=== PATIENT | female | born 1960 | race Caucasian/White ===

== ENCOUNTER → 2020-01-01 12:57 | Outpatient (BNVA) | payer MEDICAID, SELFPAY | PROVIDERS: Family Provider Family Medicine; Visit Provider Family Medicine | DX: M23.301 Other meniscus derangements, unspecified lateral meniscus, left knee (principal); M19.90 Unspecified osteoarthritis, unspecified site; E11.9 Type 2 diabetes mellitus without complications; Z01.89 Encounter for other specified special examinations; M23.201 Derangement of unspecified lateral meniscus due to old tear or injury, left knee; M51.9 Unspecified thoracic, thoracolumbar and lumbosacral intervertebral disc disorder; F41.9 Anxiety disorder, unspecified; J41.0 Simple chronic bronchitis | CPT/HCPCS: 80053; 83036; 85025 ==

== ENCOUNTER → 2020-01-22 11:11 | Outpatient (BNVA) | payer MEDICAID, SELFPAY | PROVIDERS: Family Provider Family Medicine; Referring Provider Family Medicine; Visit Provider Orthopaedic Surgery | DX: M25.562 Pain in left knee (principal); M17.11 Unilateral primary osteoarthritis, right knee | CPT/HCPCS: 73560; 73565 ==

== ENCOUNTER → 2020-07-01 15:02 | Outpatient (BNVA) | payer MEDICAID, SELFPAY | PROVIDERS: Family Provider Family Medicine; Visit Provider Family Medicine | DX: E11.9 Type 2 diabetes mellitus without complications (principal); R27.0 Ataxia, unspecified; Z01.89 Encounter for other specified special examinations; F41.9 Anxiety disorder, unspecified | CPT/HCPCS: 36416; 82962; 83036 ==

== ENCOUNTER → 2020-11-03 12:31 | Outpatient (BNVA) | payer MEDICAID, SELFPAY | PROVIDERS: Family Provider Family Medicine; Visit Provider Family Medicine | DX: E11.9 Type 2 diabetes mellitus without complications (principal); J41.0 Simple chronic bronchitis; R27.0 Ataxia, unspecified; M51.9 Unspecified thoracic, thoracolumbar and lumbosacral intervertebral disc disorder; F41.9 Anxiety disorder, unspecified; E28.39 Other primary ovarian failure | CPT/HCPCS: 80048; 83036 ==

== ENCOUNTER → 2021-01-27 09:40 | Outpatient (BNVA) | payer MEDICAID, SELFPAY | PROVIDERS: Family Provider Family Medicine; PCP Family Medicine; Referring Provider Family Medicine; Visit Provider Specialist | DX: R20.0 Anesthesia of skin (principal); R20.2 Paresthesia of skin; M51.9 Unspecified thoracic, thoracolumbar and lumbosacral intervertebral disc disorder; Q99.2 Fragile X chromosome; F17.210 Nicotine dependence, cigarettes, uncomplicated | CPT/HCPCS: 99205 ==

== ENCOUNTER 2021-01-27 11:37 | Outpatient (CLI) | payer MEDICAID, SELFPAY ==
[2021-01-27 13:14] LABS: Vitamin B12 542 pg/mL (232-1245)
== END 2021-01-27 11:38 | disposition home or self-care (01) ==
LOC: LAB 11:41
PROVIDERS: PCP Family Medicine; Visit Provider Specialist
DX: R20.0 Anesthesia of skin (principal); R20.2 Paresthesia of skin
CPT/HCPCS: 36415; 82607

== ENCOUNTER 2021-02-17 11:16 | Outpatient (CLI) | payer MEDICAID, SELFPAY ==
--- NOTE | 2021-02-17 11:45 | MR_ITS ---
WS: [id number] MRI LUMBAR SPINE NONCONTRAST HISTORY: M51.9 - Unspecified thoracic, thoracolumbar and lumbosacral intervertebral disc disorder COMPARISON: 05/17/2019 TECHNIQUE: Sagittal and axial multisequence imaging is submitted. Disc osteophyte encroachment upon the ventral cervical cord at C5-6 and C6-7. Posterior lumbar alignment is normal. Mild wedging and Schmorl's nodes along the superior endplates o f T11 and T12. T11 Schmorl's node is new. Moderate disc space narrowing at L5-S1. Otherwise mild desiccation throughout the lumbar spine. Conus terminates normally at L2. L1-L2: Normal. L2-L3: Mild facet joint arthritis. No stenosis. There is a small 6 mm facet cysts on the RIGHT. L3-L4: Mild annular disc bulge with facet joint arthritis. No stenosis. L4-L5: Mild annular disc bulging and mild ligamentum flavum arthritis. Very mild narrowing of the lat eral recesses. No significant foraminal stenosis. L5-S1: Mild annular disc bulging and mild osteophytic ridging. Very mild bilateral foraminal and suba rticular recess stenosis. Similar to the prior studies. Atrophy LEFT kidney with cortical thinning and scarring. MR/MR lumbar spine wo con* [id number] IMPRESSION: 1. No significant central or foraminal stenosis. 2. Mild bilateral foraminal subarticular recess stenosis at L5-S1 similar to t he prior study. 3. Degenerative disc disease is moderate at L5-S1. 4. Schmorl's nodes defects superior endplates of T11 and T12.
[2021-02-17 12:44] LABS: Vitamin B12 587 pg/mL (232-1245)
== END 2021-02-17 11:17 | disposition home or self-care (01) ==
LOC: RADSHAW 11:18
PROVIDERS: PCP Family Medicine; Visit Provider Specialist
DX: M51.9 Unspecified thoracic, thoracolumbar and lumbosacral intervertebral disc disorder (principal); R20.0 Anesthesia of skin; R20.2 Paresthesia of skin; M48.07 Spinal stenosis, lumbosacral region; M51.37 Other intervertebral disc degeneration, lumbosacral region; M51.44 Schmorl's nodes, thoracic region
CPT/HCPCS: 36415; 72148; 81273; 82607

== ENCOUNTER 2021-04-05 06:25 | Emergency (ER) | payer MEDICAID, SELFPAY ==
[2021-04-05] VITALS (7 sets, daily range): BP systolic 120–171; BP diastolic 76–117; PULSE 100–114; RESP 18–19; TEMP 36.8; O2SAT 93–97; BMI 30.4
--- NOTE | 2021-04-05 06:40 | CTR_ITS ---
PROCEDURE INFORMATION: Exam: CT Thoracic Spine Without Contrast Exam date and time: 04/05/2021 6:51 AM Age: 60 years old Clinical indication: Pain in thoracic spine TECHNIQUE: Imaging protocol: Computed tomography images of the thoracic spine without contrast. Radiation optimization: All CT scans at this facility use at least one of these dose optimization techniques: automated exposure control; mA and/or kV adjustment per patient size (includes targeted exams where dose is matched to clinical indication); or iterative reconstruction. COMPARISON: CR XR knees AP WB w LT lmt ORTH 01/22/2020 11:15 AM RADIATION DOSE METRICS: Total DLP (mGy-cm): 1915.74 FINDINGS: Vertebrae: Alignment is normal No fracture. Schmorl's node superior endplate T11 Discs/Spinal canal/Neural foramina: Degenerative changes throughout much of the thoracic spine Soft tissues: Unremarkable. CT/CT thoracic spin wo con* [id number] IMPRESSION: No fracture. Mild diffuse degenerative disc disease. Radiation Dose CTDIVOL = (mGy): DLP = 1915.74 (mGy-cm)
--- NOTE | 2021-04-05 06:40 | CTR_ITS ---
PROCEDURE INFORMATION: Exam: CT Lumbar Spine Without Contrast Exam date and time: 04/05/2021 6:51 AM Age: 60 years old Clinical indication: Low back pain TECHNIQUE: Imaging protocol: Computed tomography images of the lumbar spine without contrast. Radiation optimization: All CT scans at this facility use at least one of these dose optimization techniques: automated exposure control; mA and/or kV adjustment per patient size (includes targeted exams where dose is matched to clinical indication); or iterative reconstruction. COMPARISON: MR lumbar spine wo con* [id number] 02/17/2021 11:51 AM RADIATION DOSE METRICS: Total DLP (mGy-cm): 2316.51 FINDINGS: Vertebrae: No spondylolisthesis No pars defect. No fracture. Discs/Spinal canal/Neural foramina: Mild degenerative disc disease reflected as a decrease in disc space height and anterior endplate osteophytosis. Severe disc space narrowing L5-S1 with vacuum disc phenomenon. Annular disc bulge and/or disc protrusions most pronounced L4-L5 and to a lesser degree L5-S1. Kidneys and ureters: Scarred atrophic right kidney Soft tissues: Unremarkable. CT/CT lumbar spine wo con* [id number] IMPRESSION: 1. Mild degenerative disc disease reflected as a decrease in disc space height and anterior endplate osteophytosis. Severe disc space narrowing L5-S1 with vacuum disc phenomenon. 2. Annular disc bulge and/or disc protrusions most pronounced L4-L5 and to a lesser degree L5-S1. Radiation Dose CTDIVOL = (mGy): DLP = 2316.51 (mGy-cm)
[2021-04-05] MEDS: oxyCODONE-APAP 5-325 mg Tablet 1 TAB PO (06:44)
[2021-04-05] MEDS: cyclobenzaprine 10 mg Tablet PO (06:44)
--- NOTE | 2021-04-05 06:51 | PC.NURSE ---
pt to CT by stretcher with tech
--- NOTE | 2021-04-05 07:01 | ED_ITS ---
HPI - Back Pain/Injury General: Chief Complaint: Back Pain/Injury Stated Complaint: back pain Time Seen by Provider: 04/05/21 06:26 Source: patient Mode of arrival: ambulatory Limitations: no limitations History of Present Illness: HPI Narrative: Laney is a very nice 60-year-old female who comes in complaining of back pain. She states that she fell 1 week ago and did not think she hurt her back tremendously at the time but as time is progressed she is develops progressively worsening muscle spasms in her back. She describes the pain as a spasm type leg pain in both sides of her upper back and extends down into her lower back. She denies any loss of bowel or bladder control, saddle anesthesia, no numbness in her groin, radiation down her legs or fever. She denies abdominal pain, fever, dysuria, worsening of pain on one side more than another and the other complaints. The patient has a diagnosis of ataxic gait which she is unaware of what causes that but states that she does normally not walk normal. Patient states this all proceeded after she fell and has gotten progressively worse. Her regular home medications including Valium are not helping. Because she cannot get relief she came here to the hospital. Associated symptoms: Deny abdominal pain, chills, difficulty walking, dysuria, fatigue, fever(s), hematuria, nausea, syncope, urinary urgency or vomiting Review of Systems Const: Denies: fever(s), chills, body aches, fatigue, malaise or diaphoresis Eyes: Denies: change in vision, blurry vision, photophobia, eye discomfort, eye discharge, eye redness or yellow eyes ENMT: Denies: throat pain, odynophagia, hoarseness, swelling of lips/tongue, ear or mastoid pain, ear discharge, change in hearing or nasal discharge Card: Denies: chest pain, palpitations, irregular heart rhythm, edema, lightheadedness, syncope, pre-syncope, dyspnea on exertion or orthopnea Resp: Denies: dyspnea, productive cough, non-productive cough, wheezing, hemoptysis or chest congestion GI: Denies: abdominal pain, nausea, vomiting, hematemesis, coffee ground emesis, heartburn, diarrhea, constipation, GI cramping, hematochezia or melena : Denies: flank pain, dysuria, urinary frequency, urinary urgency or hematuria Musc: Reports: back pain; Denies: neck pain, extremity pain, extremity swelling, joint pain, joint swelling, joint redness, joint warmth or joint stiffness Skin/Breast: Denies: rash, pruritus, erythema, skin pain or skin tenderness Neuro: Denies: headache(s), numbness in extremities, weakness in extremities, sensory changes, lack of coordination, difficulty walking, dizziness, vertigo, confusion, Slurred speech present or seizure-like activity Arnav/Lymph: Denies: easy bruising, easy bleeding, petechiae, purpura or enlarged lymph nodes All/Imm: Denies: urticaria, throat swelling, tongue swelling, facial swelling or acute wheezing PFSH ED PFSH: Medical History Anxiety Ataxia COPD (chronic obstructive pulmonary disease) Hypoestrogenism Lumbar disc disease Tear of lateral meniscus of left knee Type 2 diabetes mellitus without complications Family History Other Cancer Diabetes Heart disease Social History Smoking and tobacco status: heavy tobacco smoker cigarettes Quit status (tobacco): not considering quitting Second hand smoke exposure: Yes Smoking risk assessment/counseling performed?: Yes Alcohol intake: never Adopted: No Caregiver/support person: Yes Lives independently: No Household members: spouse Housing: House Marital status: Current occupational status: disabled Pets and animals: Yes History of recent travel: No Sexually active: Yes Current gender identity: Female Agree to transfusion: Yes Physical Exam Const: COMMON NORMALS: no acute distress, patient oriented x3, no limitations and alert GENERAL APPEARANCE: cooperative HENMT: COMMON NORMALS: normocephalic, atraumatic, external ears normal, EAC's normal and Normal external nose present HEAD & SCALP: normal to inspection, normocephalic and atraumatic FACE & SINUS: normal facial exam and face symmetric NOSE: Normal external nose present and Normal nares present EXTERNAL EAR: Yes external ears normal EXTERNAL AUDITORY CANAL: EAC's normal MOUTH: Normal oral and palatal mucosa present, lip normal and tongue normal Eye: COMMON NORMALS: Equal, round and reactive pupils present and conjunctivae normal GENERAL EYE: appearance normal, both eyes and all related structures ALIGNMENT: Yes alignment normal PERIORBITAL: periorbital findings normal EYELID: eyelids normal CONJUNCTIVA: Yes conjunctivae normal SCLERA: sclerae normal PUPIL: Yes Equal, round and reactive pupils present Neck/C-Spine: COMMON NORMALS: full ROM, no lymphadenopathy, supple, no meningeal signs and no JVD GENERAL: Yes normal visual inspection and Yes trachea midline Chest: COMMONS NORMALS: normal inspection of the chest and normal palpation of entire chest wall Resp: COMMON NORMALS: normal respiratory effort, No retractions and No use of accessory muscles EFFORT & INSPECTION: Yes able to speak in complete sentences and Yes symmetric chest movement AUSCULTATION: no crackles, no rales, rhonchi, wheezes and other (Frequent cough) Cardio: COMMON NORMALS: no JVD, regular rate, regular rhythm, S1 normal heart sound present and S2 normal heart sound present RATE: regular rate RHYTHM: regular rhythm HEART SOUNDS: S1 normal heart sound present, S2 normal heart sound present, no click, no gallops, no murmurs and no rubs GI: COMMON NORMALS: Soft to palpation and No hepatosplenomegaly present PALPATION: Yes Soft to palpation, No Tenderness to palpation present (GI), No Guarding due to palpation present (GI), No Rigid due to palpation, Yes No hepatosplenomegaly present, No Hernia present, No Palpable mass present and No Pulsatile mass present : COMMON NORMALS: Yes no CVA tenderness BLADDER/KIDNEY EXAM: Yes no CVA tenderness EXTERNAL FEMALE EXAM: No Hernia present Back/Pelvis: COMMON NORMALS: no CVA tenderness GENERAL BACK: Yes other (Bilateral thoracic and lumbar paraspinal muscle spasms. Areas are tender t) Extremity: COMMON NORMALS: normal to inspection, full ROM, capillary refill normal, no joint enlargement, no clubbing, cyanosis or edema and no calf tenderness Neuro: COMMON NORMALS: patient oriented x3, CN's II-XII intact bilaterally, moves all extremities, no focal motor deficits and no sensory deficits noted SENSORIUM/ORIENTATION: Yes alert MENINGEAL SIGNS: Yes no meningeal signs SPEECH: speech normal GAIT: Yes Ataxic gait present (Normal per her baseline according to patient) MOTOR EXAM: 5/5 motor strength present throughout DEEP TENDON REFLEXES: Right patellar reflex intensity grade: 2+, Left patellar reflex intensity grade: 2+, Right ankle reflex intensity grade: 2+ and Left ankle reflex intensity grade: 2+ Psych: COMMON NORMALS: mental status grossly normal, Normal thought process present, cooperative, normal affect, speech normal and activity/motor behavior normal SPEECH: Yes normal speech THOUGHT PROCESS: Normal thought process present Skin: COMMON NORMALS: no rashes or lesions noted, turgor normal, no jaundice, no petechiae and no mottling GENERAL SKIN EXAM: no rashes or lesions noted and turgor normal Course Vital Signs: Vital signs: Vital Signs Temperature 98.3 F 04/05/21 06:29 Pulse Rate 102 H 04/05/21 08:15 Respiratory Rate 18 04/05/21 08:11 Blood Pressure 171/117 04/05/21 07:54 Pulse Oximetry 97 04/05/21 08:11 MDM - Back Pain/Injury MDM Narrative: Medical decision making narrative: [id number] -Laney is a very nice 60-year-old female who came in with a complaint of pain in her upper and lower back for the past week. She fell but did some more of a twisting type of injury than a direct blow to her back. CT scans did not reveal any sign of acute trauma such as fracture or acute subluxation or dislocation. Patient continues have a great deal of pain here after oral medications so I expand my work-up to include a CT scan of the belly. This was performed as ultrasound was inconclusive to rule out AAA and a kidney stone. CT scan does not reveal evidence of kidney stone or AAA. There is no sign of acute findings. The patient did not have belly pain I was looking more for a referred source such as something serious like a AAA or kidney stone. After more time the patient is feeling better. She is ready to go home. She also had considerable wheezing and rhonchi when she would cough. Patient has history of COPD. I placed her on antibiotics, steroids which I think will also help her back and placed her on pain medicine at home. I did school guidance counselor her at length about not taking her chronic medication for pain along with what I have given her. She states she understands this will follow-up as directed return here if needed. Differential Diagnosis: Differential diagnosis back pain/injury: Likely lumbar radiculopathy, sciatica, strain of lumbar region, renal colic, pyelonephritis, thoracic back pain, AAA and discitis Medical Records: Attestation: I reviewed the patient's medical records. Lab Data: Attestation: I reviewed the patient's lab results. Labs: Lab Results 04/05/21 04/05/21 04/05/21 Range/Units 07:33 08:07 08:07 WBC 5.3 (4.0-10.0) 10^3/ uL RBC 4.53 (4.1-5.3) 10^6/u L Hgb 13.4 (11.5-15.3) g/dL Hct 40.2 (37.0-47.0) % MCV 88.7 (81-99) fL MCH 29.6 (28.0-34.0) pg MCHC 33.3 (30.0-36.0) g/dL RDW 12.4 (12.1-15.1) % Plt Count 233 (130-400) 10^3/c mm MPV 9.7 (7.4-10.4) fL Neut % (Auto) 64.5 % Lymph % (Auto) 27.5 % [place] % (Auto) 6.8 % Eos % (Auto) 0.8 % Baso % (Auto) 0.2 % Neut # (Auto) 3.42 (1.8-7.7) 10^3/u L Lymph # (Auto) 1.5 (0.8-4.8) 10^3/u L [place] # (Auto) 0.4 (0.2-0.9) 10^3/u L Eos # (Auto) 0.0 (0.0-0.8) 10^3/u L Baso # (Auto) 0.0 (0.0-0.1) 10^3/u L Nucleated RBC % (a uto) 0 % Nucleated RBCs # 0.0 /100WBC Sodium 140 (136-145) mmol/L Potassium 4.1 (3.5-5.1) mmol/L Chloride 103 (98-107) mmol/L Carbon Dioxide 23 (22-29) mmol/L Anion Gap 18.1 (5-19) BUN 9 (8-23) mg/dL Creatinine 0.6 (0.5-0.9) mg/dL GFR Calculation 101.3 (90-130) mL/min Glucose 249 H (65-115) mg/dL Calculated Osmolal ity 297 H (285-295) mOsm/k g Calcium 9.1 (8.5-10.5) mg/dL Total Bilirubin 0.7 (0.15-1.2) mg/dL AST 57 H (0-32) U/L ALT 67 H (0-33) U/L Alkaline Phosphata se 154 H (35-105) IU/L Total Protein 8.0 (6.6-8.7) g/dL Albumin 4.3 (3.5-5.2) g/dL Globulin 3.7 (1.3-4.6) g/dL Urine Color Yellow (Yellow) Urine Appearance Hazy A (CLEAR) Urine pH 5 (5-7) Ur Specific Gravit y 1.015 (1.005-1.030) Urine Protein Neg (Negative) Urine Glucose (UA) 1+ (Normal) Urine Ketones Negative (Negative) Urine Blood Neg (Negative) Urine Nitrate Positive H (Negative) Urine Bilirubin Neg (Negative) Urine Urobilinogen 1 H (Negative) mg/dL Ur Leukocyte Pepper ase Negative (Negative) Urine RBC None (0-2) /hpf Urine WBC 5-10 H (0-5) /hpf Ur Squamous Epith Cells 10-15 H (0-5) /hpf Amorphous Sediment Not Reportable Urine Bacteria 2+ H (NONE) /hpf Imaging Data^: CT Thoracic Spine: Radiologist's impression: [place] [address] CT Scan Report Signed Patient: Laney Grady Unit #: [id number] : 1960 Age/Sex: 60 / F ADM Date: 04/05/21 Loc: ER Room/Bed: Attending Dr: Ordering Provider/Ordering MD: Daisy Swanson DO Date of Service: 04/05/21 Procedure(s): CT thoracic spin wo con* [id number] Accession Number(s): [id number] Report Number: [id number] PROCEDURE INFORMATION: Exam: CT Thoracic Spine Without Contrast Exam date and time: 04/05/2021 6:51 AM Age: 60 years old Clinical indication: Pain in thoracic spine TECHNIQUE: Imaging protocol: Computed tomography images of the thoracic spine without contrast. Radiation optimization: All CT scans at this facility use at least one of these dose optimization techniques: automated exposure control; mA and/or kV adjustment per patient size (includes targeted exams where dose is matched to clinical indication); or iterative reconstruction. COMPARISON: CR XR knees AP WB w LT lmt ORTH 01/22/2020 11:15 AM RADIATION DOSE METRICS: Total DLP (mGy-cm): 1915.74 FINDINGS: Vertebrae: Alignment is normal No fracture. Schmorl's node superior endplate T11 Discs/Spinal canal/Neural foramina: Degenerative changes throughout much of the thoracic spine Soft tissues: Unremarkable. CT/CT thoracic spin wo con* [id number] IMPRESSION: No fracture. Mild diffuse degenerative disc disease. Radiation Dose CTDIVOL = (mGy): DLP = 1915.74 (mGy-cm) Dictated By: Refugio Pack MD Signed By: Refugio Pack MD Signed Date/Time: 04/05/21739 DD/ 8 CT Lumbar Spine: Radiologist's impression: [place] [address] CT Scan Report Signed Patient: Laney Grady Unit #: [id number] : 1960 Age/Sex: 60 / F ADM Date: 04/05/21 Loc: ER Room/Bed: Attending Dr: Ordering Provider/Ordering MD: Daisy Swanson DO Date of Service: 04/05/21 Procedure(s): CT lumbar spine wo con* [id number] Accession Number(s): [id number] Report Number: [id number] PROCEDURE INFORMATION: Exam: CT Lumbar Spine Without Contrast Exam date and time: 04/05/2021 6:51 AM Age: 60 years old Clinical indication: Low back pain TECHNIQUE: Imaging protocol: Computed tomography images of the lumbar spine without contrast. Radiation optimization: All CT scans at this facility use at least one of these dose optimization techniques: automated exposure control; mA and/or kV adjustment per patient size (includes targeted exams where dose is matched to clinical indication); or iterative reconstruction. COMPARISON: MR lumbar spine wo con* [id number] 02/17/2021 11:51 AM RADIATION DOSE METRICS: Total DLP (mGy-cm): 2316.51 FINDINGS: Vertebrae: No spondylolisthesis No pars defect. No fracture. Discs/Spinal canal/Neural foramina: Mild degenerative disc disease reflected as a decrease in disc space height and anterior endplate osteophytosis. Severe disc space narrowing L5-S1 with vacuum disc phenomenon. Annular disc bulge and/or disc protrusions most pronounced L4-L5 and to a lesser degree L5-S1. Kidneys and ureters: Scarred atrophic right kidney Soft tissues: Unremarkable. CT/CT lumbar spine wo con* [id number] IMPRESSION: 1. Mild degenerative disc disease reflected as a decrease in disc space height and anterior endplate osteophytosis. Severe disc space narrowing L5-S1 with vacuum disc phenomenon. 2. Annular disc bulge and/or disc protrusions most pronounced L4-L5 and to a lesser degree L5-S1. Radiation Dose CTDIVOL = (mGy): DLP = 2316.51 (mGy-cm) Dictated By: Refugio Pack MD Signed By: Refugio Pack MD Signed Date/Time: 04/05/21737 DD/ 6 CXR: Attestation: I personally reviewed and interpreted this imaging study as follows: My impression: No acute infiltrates. No pneumothorax. Heart regular size. Similar to previous Discharge Plan Discharge Patient Disposition: Home Clinical Impression: Bronchitis with acute wheezing Back pain Qualifiers: Back pain location: thoracic back pain Chronicity: acute Back pain laterality: bilateral Qualified Code(s): M54.6 - Pain in thoracic spine UTI (urinary tract infection) Qualifiers: Urinary tract infection type: site unspecified Hematuria presence: without hematuria Qualified Code(s): N39.0 - Urinary tract infection, site not specified Condition: Stable Prescriptions: New cefdinir 300 mg capsule 300 mg PO Q12H 10 Days Qty: 20 RF: 0 prednisone 10 mg tablet 20 mg PO TID 5 Days Qty: 30 RF: 0 doxycycline hyclate 100 mg capsule 100 mg PO BID 10 Days Qty: 20 RF: 0 Protonix 40 mg tablet,delayed release (DR/EC) 40 mg PO DAILY Qty: 30 RF: 0 Percocet 5-325 mg tablet 1 tab PO Q6H PRN (Reason: pain) Qty: 14 RF: 0 No Action albuterol sulfate [ProAir HFA] 90 mcg/actuation HFA aerosol inhaler 2 puff INHALATION QID PRN (Reason: shortness of breath or wheezing) 30 Days Qty: 8 RF: 5 metformin 500 mg tablet 500 mg PO DAILY Qty: 90 RF: 1 glipizide 5 mg tablet 7.5 mg PO BID Qty: 90 RF: 5 tramadol 50 mg tablet 50 mg PO TID PRN (Reason: pain) Qty: 90 RF: 5 estradiol 0.5 mg tablet 0.5 mg PO DAILY Qty: 90 RF: 1 diazepam 10 mg tablet 10 mg PO BID PRN (Reason: anxiety) 30 Days Qty: 60 RF: 5 hydrocodone-acetaminophen 10-325 mg tablet 1 tab PO Q6H PRN (Reason: pain) 30 Days Qty: 120 RF: 0 Discharge Orders: Discharge ED (Routine); Ordered 04/05/21 Ordered By: Daisy Swanson Referrals: Padmini Gamboa MD [Primary Care Provider] - 1-3 days Discharge Diet: Usual diet Discharge Activity: Increase activity as tolerated Patient Instructions: Urinary Tract Infection in Women (ED), Acute Bronchitis (ED), Back Pain (ED), Opioid Safety Activity Restrictions/Additional Instructions: Please return to the ER immediately for any of the signs or symptoms listed on your discharge instruction sheets, worsening/changing of your symptoms, you are not getting better as quickly as expected, or for ANY other cause or concerns. Do not take your hydrocodone's with the Percocets that I have prescribed you. You can continue to take the Valium for back pain. Follow-up with Dr. Gamboa re garding the lesions found on your spleen as these will need to be watched and monitored to be certain they do not turn into a tumor. If you develop abdominal pain, fever, vomiting, worsening back pain, or have any other new concerns please return to the ER immediately. 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
[2021-04-05 07:45] LABS: Add Urine Microscopic? YES; Bilirubin Urine Neg (Negative); Blood Urine Neg (Negative); Glucose Urine UA 1+ (Normal); Ketones Urine Negative (Negative); Leukocyte Esterase Urine Negative (Negative); Nitrate Urine Positive (Negative); Protein Urine Neg (Negative); Specific Gravity, Urine 1.015 (1.005-1.030); Urine Appearance Hazy (CLEAR); Urine Color Yellow (Yellow); Urobilinogen Urine 1 mg/dL (Negative); pH Urine 5 (5-7)
[2021-04-05] MEDS: ketorolac 60 mg/2 mL INJ IM (07:51)
--- NOTE | 2021-04-05 07:51 | XRR_ITS ---
PROCEDURE INFORMATION: Exam: XR Chest Exam date and time: 04/05/2021 8:06 AM Age: 60 years old Clinical indication: Cough and shortness of breath TECHNIQUE: Imaging protocol: XR of the chest. Views: 1 view. COMPARISON: CR XR knees AP WB w LT lmt ORTH 01/22/2020 11:15 AM FINDINGS: Lungs: Unremarkable. No consolidation. Pleural spaces: Unremarkable. No pleural effusion. No pneumothorax. Heart/Mediastinum: Unremarkable. No cardiomegaly. Bones/joints: Unremarkable. XR/XR chest 1V portable [id number] IMPRESSION: No acute findings.
--- NOTE | 2021-04-05 07:53 | USR_ITS ---
PROCEDURE INFORMATION: Exam: US Abdomen Complete Exam date and time: 04/05/2021 8:02 AM Age: 60 years old Clinical indication: Abdominal pain; Prior surgery; Surgery type: H/o gb removed (not sure when, not recently) TECHNIQUE: Imaging protocol: Real-time ultrasound of the abdomen with image documentation. COMPARISON: CR XR knees AP WB w LT lmt ORTH 01/22/2020 11:15 AM FINDINGS: Liver: liver is echogenic likely related to fatty infiltration. Liver 18 cm Flow within the portal vein is towards the liver- hepatopedal Gallbladder: Prior cholecystectomy. Common bile duct: Common bile duct normal. Common bile duct 9 mm status post cholecystectomy. Pancreas: Visualized portions of the pancreas normal. Poorly characterized pancreas secondary to overlying bowel gas. Right kidney: Right kidney 9.4 cm. Calcification of approximately 1.3 cm. Right kidney is normal. Left kidney: Left kidney 14 cm. Spleen: Spleen 11 cm. Hyperechoic focus within the spleen. 2.2 cm. Possible hemangioma. Aorta: Visualized portions of the aorta is non-aneurysmal and the visualized portions of the inferior vena cava is unremarkable. Inferior vena cava: Normal. US/US abdomen complete* [id number] IMPRESSION: 1. Liver is echogenic likely related to fatty infiltration. Hepatomegaly. 2. Prior cholecystectomy. 3. Right kidney Calcification of approximately 1.3 cm. 4. Spleen Hyperechoic focus within the spleen. 2.2 cm. Possible hemangioma. Please see CT abdomen and pelvis.
[2021-04-05 07:56] LABS: Add Urine Culture? No; Bacteria Urine 2+ /hpf
[2021-04-05 08:16] LABS: Basophils % 0.2 %; Eosinophils % 0.8 %; Hematocrit 40.2 % (37.0-47.0); Hemoglobin 13.4 g/dL (11.5-15.3); Lymphocytes # 1.5 10^3/uL (0.8-4.8); Lymphocytes % 27.5 %; Mean Corpuscular HGB Conc 33.3 g/dL (30.0-36.0); Mean Corpuscular Hemoglobin 29.6 pg (28.0-34.0); Mean Corpuscular Volume 88.7 fL (81-99); Mean Platelet Volume 9.7 fL (7.4-10.4); Monocytes # 0.4 10^3/uL (0.2-0.9); Monocytes % 6.8 %; Neutrophils # 3.42 10^3/uL (1.8-7.7); Neutrophils % 64.5 %; Nucleated Red Blood Cells % 0 %; Platelet Count 233 10^3/cmm (130-400); Red Blood Count 4.53 10^6/uL (4.1-5.3); Red Cell Distribution Width 12.4 % (12.1-15.1); White Blood Count 5.3 10^3/uL (4.0-10.0)
[2021-04-05] MEDS: doxycycline 100 mg Tablet 200 MG PO (08:16)
[2021-04-05] MEDS: pantoprazole DR 40 mg Tablet 80 MG PO (08:16)
[2021-04-05] MEDS: predniSONE 20 mg Tablet 60 MG PO (08:16)
[2021-04-05] MEDS: sodium chloride 0.9% 1,000 ML 999 ML IV (08:17)
[2021-04-05] MEDS: cefTRIAXone 1,000 MG in sodium chloride 0.9% (plus) 50 ML 100 MG IV (08:17)
[2021-04-05] MEDS: ipratropium-albuterol 3 mL Neb INHALATION (08:17)
--- NOTE | 2021-04-05 08:22 | PC.NURSE ---
portable ultrasound at bedside
[2021-04-05 08:35] LABS: Alanine Aminotransferase 67 U/L (0-33); Albumin Level 4.3 g/dL (3.5-5.2); Alkaline Phosphatase 154 IU/L (35-105); Anion Gap 18.1 (5-19); Aspartate Amino Transferase 57 U/L (0-32); Blood Urea Nitrogen 9 mg/dL (8-23); Calcium 9.1 mg/dL (8.5-10.5); Carbon Dioxide 23 mmol/L (22-29); Chloride 103 mmol/L (98-107); Globulin 3.7 g/dL (1.3-4.6); Glomerular Filtration Rate 101.3 mL/min (90-130); Glucose 249 mg/dL (65-115); Osmolality Calculated 297 mOsm/kg (285-295); Potassium 4.1 mmol/L (3.5-5.1); Sodium 140 mmol/L (136-145); Total Bilirubin 0.7 mg/dL (0.15-1.2)
--- NOTE | 2021-04-05 08:41 | CTR_ITS ---
PROCEDURE INFORMATION: Exam: CT Abdomen And Pelvis With Contrast Exam date and time: 04/05/2021 8:43 AM Age: 60 years old Clinical indication: Abdominal pain; Generalized; Prior surgery; Surgery date: 6+ months; Surgery type: Gb TECHNIQUE: Imaging protocol: Computed tomography of the abdomen and pelvis with contrast. Radiation optimization: All CT scans at this facility use at least one of these dose optimization techniques: automated exposure control; mA and/or kV adjustment per patient size (includes targeted exams where dose is matched to clinical indication); or iterative reconstruction. Contrast material: OMNIPAQUE 300; Contrast volume: 95 ml; Contrast route: INTRAVENOUS (IV); COMPARISON: US abdomen complete* [id number] 04/05/2021 8:12 AM RADIATION DOSE METRICS: Total DLP (mGy-cm): 1772.56 FINDINGS: Lungs: Patchy ground-glass airspace disease within the lung bases. Possible nodule right lower lobe of 11 mm. Follow-up CT chest suggested. Non urgent. Liver: Severe fatty infiltration of the liver. Gallbladder and bile ducts: Surgical clips in the region of the gallbladder fossa. Prominence of the biliary radicals likely related to the prior cholecystectomy and hence the reservoir effect. Please correlate with LFTs. Pancreas: Normal. No ductal dilation. Spleen: Three splenic lesions 2 of which may be cyst. Larger lesion superiorly of 2 cm. For patients without history of cancer, recommend follow-up MRI in 6-12 months. With history of cancer, recommend evaluation with non-emergent PET vs. MRI vs. biopsy. Adrenal glands: Normal. No mass. Kidneys and ureters: Small scarred atretic right kidney. Stomach and bowel: High attenuation within the small bowel in the right mid abdomen. Small amount contrast versus medicinal. Gastrointestinal bleed felt less likely. Correlate. Appendix: No evidence of appendicitis. Intraperitoneal space: Unremarkable. No free air. No significant fluid collection. Vasculature: Flow within the superior mesenteric artery, celiac trunk and inferior mesenteric arteries. Lymph nodes: Unremarkable. No enlarged lymph nodes. Urinary bladder: Unremarkable as visualized. Reproductive: Prior hysterectomy. Bones/joints: Unremarkable. No acute fracture. Soft tissues: Unremarkable. CT/CT abdomen pelvis w con* [id number] IMPRESSION: No acute intra-abdominal process. No inflammatory process. No obstruction. No free fluid within the pelvis or within the dependent portions of the peritoneum. 1. Severe fatty infiltration of the liver. 2. Three splenic lesions 2 of which may be cyst. Larger lesion superiorly of 2 cm. For patients without history of cancer, recommend follow-up MRI in 6-12 months. With history of cancer, recommend evaluation with non-emergent PET vs. MRI vs. biopsy. 3. Small scarred atretic right kidney. 4. High attenuation within the small bowel in the right mid abdomen. Small amount contrast versus medicinal. Gastrointestinal bleed felt less likely. Correlate. 5. Patchy ground-glass airspace disease within the lung bases. Possible nodule right lower lobe of 11 mm. Follow-up CT chest suggested. Non urgent. Radiation Dose CTDIVOL = (mGy): DLP = 1772.56 (mGy-cm)
[2021-04-05] MEDS: iohexol 300 mg/mL 100 mL Btl IV (09:05)
== END 2021-04-05 09:46 | disposition home or self-care (01) ==
PROVIDERS: Emergency Provider Emergency Medicine; PCP Family Medicine
DX: M54.6 Pain in thoracic spine (principal); J40 Bronchitis, not specified as acute or chronic; N39.0 Urinary tract infection, site not specified; Z79.84 Long term (current) use of oral hypoglycemic drugs; J44.9 Chronic obstructive pulmonary disease, unspecified; E11.9 Type 2 diabetes mellitus without complications; F17.210 Nicotine dependence, cigarettes, uncomplicated
CPT/HCPCS: 71045; 72128; 72131; 74177; 76700; 80053; 81001; 85025; 94640; 96365; 96372; 99284; J0696; J1885; J7030; J7512; Q9967

== ENCOUNTER → 2021-05-01 11:04 | Outpatient (BNVA) | payer MEDICAID, SELFPAY | PROVIDERS: PCP Family Medicine; Visit Provider Nurse Practitioner Women's Health | DX: R32 Unspecified urinary incontinence (principal) | CPT/HCPCS: 81000; 87077; 87086; 87184 ==

== ENCOUNTER → 2021-05-22 14:28 | Outpatient (BNVA) | payer MEDICAID, SELFPAY | PROVIDERS: PCP Family Medicine; Visit Provider Obstetrics & Gynecology | DX: N39.46 Mixed incontinence (principal); N39.0 Urinary tract infection, site not specified; N32.81 Overactive bladder | CPT/HCPCS: 84315; 87077; 87086; 87184 ==

== ENCOUNTER → 2021-06-15 12:23 | Outpatient (BNVA) | payer MEDICAID, SELFPAY | PROVIDERS: PCP Family Medicine; Visit Provider Family Medicine | DX: E11.9 Type 2 diabetes mellitus without complications (principal); M51.9 Unspecified thoracic, thoracolumbar and lumbosacral intervertebral disc disorder | CPT/HCPCS: 36416; 82962 ==

== ENCOUNTER → 2021-06-25 10:36 | Outpatient (BNVA) | payer MEDICAID, SELFPAY | PROVIDERS: PCP Family Medicine; Referring Provider Family Medicine; Visit Provider Orthopaedic Surgery | DX: M51.9 Unspecified thoracic, thoracolumbar and lumbosacral intervertebral disc disorder (principal); M54.9 Dorsalgia, unspecified; M48.062 Spinal stenosis, lumbar region with neurogenic claudication | CPT/HCPCS: 72110 ==

== ENCOUNTER → 2021-09-04 13:21 | Outpatient (BNVA) | payer MEDICAID, SELFPAY | PROVIDERS: PCP Family Medicine; Visit Provider Obstetrics & Gynecology | DX: N39.46 Mixed incontinence (principal) | CPT/HCPCS: 81000; 87077; 87086; 87184 ==

== ENCOUNTER → 2022-01-14 10:44 | Outpatient (BNVA) | payer MEDICAID, SELFPAY | PROVIDERS: PCP Family Medicine; Visit Provider Family Medicine | DX: E11.9 Type 2 diabetes mellitus without complications (principal); M48.062 Spinal stenosis, lumbar region with neurogenic claudication; F17.200 Nicotine dependence, unspecified, uncomplicated; E28.39 Other primary ovarian failure; N39.46 Mixed incontinence; Z68.31 Body mass index [BMI] 31.0-31.9, adult | CPT/HCPCS: 80053; 83036; 85025 ==

== ENCOUNTER → 2022-07-06 15:06 | Outpatient (BNVA) | payer MEDICAID, SELFPAY | PROVIDERS: PCP Family Medicine; Visit Provider Family Medicine | DX: E11.9 Type 2 diabetes mellitus without complications (principal); F17.200 Nicotine dependence, unspecified, uncomplicated; E28.39 Other primary ovarian failure | CPT/HCPCS: 80053; 83036 ==

== ENCOUNTER → 2022-12-21 14:16 | Outpatient (BNVA) | payer MEDICAID, SELFPAY | PROVIDERS: PCP Family Medicine; Visit Provider Family Medicine | DX: E11.9 Type 2 diabetes mellitus without complications (principal) | CPT/HCPCS: 80048; 83036 ==

== ENCOUNTER → 2023-06-08 13:53 | Outpatient (BNVA) | payer MEDICAID, SELFPAY | PROVIDERS: PCP Family Medicine; Visit Provider Family Medicine | DX: E11.9 Type 2 diabetes mellitus without complications (principal) | CPT/HCPCS: 82962 ==

== ENCOUNTER → 2024-08-29 15:38 | Outpatient (BNVA) | payer MEDICAID, SELFPAY | PROVIDERS: PCP Family Medicine; Visit Provider Family Medicine | DX: E11.9 Type 2 diabetes mellitus without complications | CPT/HCPCS: 80053; 83036; 85025 ==

== ENCOUNTER → 2025-07-31 14:21 | Outpatient (BNVA) | payer MEDICAID, SELFPAY | PROVIDERS: PCP Family Medicine; Visit Provider Family Medicine | DX: E11.9 Type 2 diabetes mellitus without complications (principal); E28.39 Other primary ovarian failure | CPT/HCPCS: 80053; 83036; 85025 ==